=== PATIENT | male | born 1955 | race Caucasian/White ===

== ENCOUNTER 2025-05-20 08:41 | Inpatient (IN) | payer MEDICARE, BC ==
[2025-05-20 09:47] LABS: PLATELET COUNT,PLT 304 K/uL (130-375); RED BLOOD CELL COUNT 4.34 M/uL (4.14-5.76); WHITE BLOOD CELL COUNT,WBC 16.0 K/uL (3.2-11.0)
[2025-05-20 09:56] LABS: APPEARANCE,URINE CLEAR (CLEAR); GLUCOSE,URINE NEGATIVE (NEGATIVE); OCCULT BLOOD,URINE SMALL (NEGATIVE)
[2025-05-20 10:06] LABS: SQUAMOUS EPITHELIAL CELLS,UR RARE /HPF; UROTHELIAL CELLS,URINE NOT SEEN /HPF
[2025-05-20 10:08] LABS: A/G RATIO 0.7 (1.2-2.2); ALANINE AMINOTRANSFERASE,ALT 95 U/L (12-78); ASPARTATE AMNIOTRANSFERASE,AST 53 U/L (15-37); BILIRUBIN TOTAL 0.5 mg/dL (0.2-1.0); BLOOD UREA NITROGEN,BUN 17 mg/dL (7-18); CARBON DIOXIDE,CO2 30 mmol/L (21-32); CHLORIDE,CL 99 mmol/L (100-108); CREATININE 0.9 mg/dL (0.8-1.3); ESTIMATED GFR 93 mL/min (>60); GLUCOSE RANDOM 113 mg/dL (74-106); POTASSIUM,K 3.4 mmol/L (3.6-5.2); PROTEIN TOTAL,TP 7.8 g/dL (6.4-8.2); SODIUM,NA 135 mmol/L (140-148)
[2025-05-20 10:09] LABS: BAND ABSOLUTE MAN 0.64 K/uL; BAND PERCENT MAN 4 % (5-11); EOSINOPHILS ABSOLUTE MAN 0.32 K/uL (0.00-0.40); EOSINOPHILS PERCENT MAN 2 % (2-4); LYMPHOCYTES ABSOLUTE MAN 0.80 K/uL (0.8-3.3); LYMPHOCYTES PERCENT MAN 5 % (24-44); MONOCYTES ABSOLUTE MAN 0.64 K/uL (0.20-0.90); MONOCYTES PERCENT MAN 4 % (2-6); NEUTROPHILS ABSOLUTE MAN 13.60 K/uL (1.0-7.6); SEG NEUTROPHILS PERCENT MAN 85 % (36-66)
[2025-05-20 10:25] LABS: CORONAVIRUS COVID-19 NAA NEGATIVE (NEGATIVE); INFLUENZA A NAA NEGATIVE (NEGATIVE); INFLUENZA B NAA NEGATIVE (NEGATIVE); RESPIRATORY SYNCYTIAL VIR NAA NEGATIVE (NEGATIVE)
[2025-05-20] MEDS: Iopamidol 612 MG/ML 100 ML Bottle IV SCH (11:51)
[2025-05-20] MEDS ORDERED: fentaNYL 250 MCG/5 ML SDV ONE ×2 (14:06→14:53)
[2025-05-20] MEDS ORDERED: Dexamethasone 4 MG/ML SDV ONE (14:07)
[2025-05-20] MEDS ORDERED: Glycopyrrolate 0.2 MG/ML 5 ML MDV ONE (14:07)
[2025-05-20] MEDS ORDERED: Propofol 200 MG/20 ML SDV ONE (14:07)
[2025-05-20] MEDS ORDERED: Ondansetron 4 MG/2 ML SDV ONE (14:07)
[2025-05-20] MEDS ORDERED: Succinylcholine 200 MG/10 ML MDV ONE (14:07)
[2025-05-20] MEDS: Piperacillin/Tazobactam 3.375 GM AdvVial ONE (14:49)
[2025-05-20] MEDS ORDERED: Lactated Ringers 1,000 ML ONE (15:18)
[2025-05-20] MEDS: fentaNYL 50 MCG/ML SDV IVPUSH ONE (16:25)
[2025-05-20] MEDS: Ondansetron 4 MG/2 ML SDV IVPUSH PRN (17:26)
[2025-05-20] MEDS: Ondansetron 4 MG/2 ML SDV IVPUSH ONE (20:34)
[2025-05-21 05:59] LABS: PLATELET COUNT,PLT 327 K/uL (130-375); RED BLOOD CELL COUNT 4.16 M/uL (4.14-5.76); WHITE BLOOD CELL COUNT,WBC 12.9 K/uL (3.2-11.0)
[2025-05-21 06:13] LABS: BAND ABSOLUTE MAN 1.55 K/uL; BAND PERCENT MAN 12 % (5-11); LYMPHOCYTES ABSOLUTE MAN 0.65 K/uL (0.8-3.3); LYMPHOCYTES PERCENT MAN 5 % (24-44); MONOCYTES ABSOLUTE MAN 0.65 K/uL (0.20-0.90); MONOCYTES PERCENT MAN 5 % (2-6); NEUTROPHILS ABSOLUTE MAN 10.06 K/uL (1.0-7.6); SEG NEUTROPHILS PERCENT MAN 78 % (36-66)
[2025-05-21 06:14] LABS: A/G RATIO 0.6 (1.2-2.2); ALANINE AMINOTRANSFERASE,ALT 54 U/L (12-78); ASPARTATE AMNIOTRANSFERASE,AST 24 U/L (15-37); BILIRUBIN TOTAL 0.6 mg/dL (0.2-1.0); BLOOD UREA NITROGEN,BUN 11 mg/dL (7-18); CARBON DIOXIDE,CO2 27 mmol/L (21-32); CHLORIDE,CL 105 mmol/L (100-108); CREATININE 0.9 mg/dL (0.8-1.3); EST CRCL DRUG DOSING (CG) 88.78 mL/min; ESTIMATED GFR 93 mL/min (>60); GLUCOSE RANDOM 141 mg/dL (74-106); POTASSIUM,K 3.9 mmol/L (3.6-5.2); PROTEIN TOTAL,TP 6.9 g/dL (6.4-8.2); SODIUM,NA 139 mmol/L (140-148)
[2025-05-21] MEDS: Piperacillin/Tazobactam/Dext 4.5 GM in Premix Bag 1 BAG IV SCH (14:12)
[2025-05-22 05:50] LABS: PLATELET COUNT,PLT 325 K/uL (130-375); RED BLOOD CELL COUNT 3.79 M/uL (4.14-5.76); WHITE BLOOD CELL COUNT,WBC 12.0 K/uL (3.2-11.0)
[2025-05-22 06:16] LABS: A/G RATIO 0.6 (1.2-2.2); ALANINE AMINOTRANSFERASE,ALT 39 U/L (12-78); ASPARTATE AMNIOTRANSFERASE,AST 16 U/L (15-37); BILIRUBIN TOTAL 0.5 mg/dL (0.2-1.0); BLOOD UREA NITROGEN,BUN 14 mg/dL (7-18); CARBON DIOXIDE,CO2 25 mmol/L (21-32); CHLORIDE,CL 107 mmol/L (100-108); CREATININE 0.8 mg/dL (0.8-1.3); EST CRCL DRUG DOSING (CG) 99.88 mL/min; ESTIMATED GFR 96 mL/min (>60); GLUCOSE RANDOM 110 mg/dL (74-106); POTASSIUM,K 3.5 mmol/L (3.6-5.2); PROTEIN TOTAL,TP 6.0 g/dL (6.4-8.2); SODIUM,NA 140 mmol/L (140-148)
[2025-05-22 06:17] LABS: ATYPICAL LYMPHOCYTES RARE; BAND ABSOLUTE MAN 0.24 K/uL; BAND PERCENT MAN 2 % (5-11); EOSINOPHILS ABSOLUTE MAN 0.48 K/uL (0.00-0.40); EOSINOPHILS PERCENT MAN 4 % (2-4); LYMPHOCYTES ABSOLUTE MAN 1.20 K/uL (0.8-3.3); LYMPHOCYTES PERCENT MAN 10 % (24-44); MONOCYTES ABSOLUTE MAN 0.72 K/uL (0.20-0.90); MONOCYTES PERCENT MAN 6 % (2-6); NEUTROPHILS ABSOLUTE MAN 9.36 K/uL (1.0-7.6); SEG NEUTROPHILS PERCENT MAN 78 % (36-66)
[2025-05-22] MEDS: Heparin Sodium 5,000 Units/ML Vial SUBCUT SCH (14:55)
[2025-05-23 05:41] LABS: PLATELET COUNT,PLT 348 K/uL (130-375); RED BLOOD CELL COUNT 3.71 M/uL (4.14-5.76); WHITE BLOOD CELL COUNT,WBC 10.8 K/uL (3.2-11.0)
[2025-05-23 06:02] LABS: BLOOD UREA NITROGEN,BUN 12.0 mg/dL (7-18); CARBON DIOXIDE,CO2 27.0 mmol/L (21-32); CHLORIDE,CL 105.0 mmol/L (100-108); CREATININE 0.9 mg/dL (0.8-1.3); EST CRCL DRUG DOSING (CG) 88.78 mL/min; ESTIMATED GFR 93.0 mL/min (>60); GLUCOSE RANDOM 116.0 mg/dL (74-106); POTASSIUM,K 3.7 mmol/L (3.6-5.2); SODIUM,NA 139.0 mmol/L (140-148)
[2025-05-23 06:16] LABS: ATYPICAL LYMPHOCYTES RARE; EOSINOPHILS ABSOLUTE MAN 0.32 K/uL (0.00-0.40); EOSINOPHILS PERCENT MAN 3 % (2-4); LYMPHOCYTES ABSOLUTE MAN 1.51 K/uL (0.8-3.3); LYMPHOCYTES PERCENT MAN 14 % (24-44); MONOCYTES ABSOLUTE MAN 0.76 K/uL (0.20-0.90); MONOCYTES PERCENT MAN 7 % (2-6); NEUTROPHILS ABSOLUTE MAN 8.21 K/uL (1.0-7.6); SEG NEUTROPHILS PERCENT MAN 76 % (36-66)
[2025-05-24 10:35] LABS: ANAPLASMA PHAGOCYTOPHILUM PCR Not Detected; BABESIA MICROTI BY PCR Not Detected; EHRLICHIA CHAFFEENSIS BY PCR Not Detected; EHRLICHIA EWINGII/CANIS BY PCR Not Detected; EHRLICHIA MURIS-LIKE BY PCR Not Detected
[2025-05-24 11:10] VITALS: BP 131/69; PULSE 79
== END 2025-05-24 12:43 | disposition home or self-care (01) | DRG 399 ==
LOC: JP.ED 08:41 → JP.SDS 13:21 → JP.MS 16:58
PROVIDERS: ADMIT Student in an Organized Health Care Education/Training Program; ATTEND Internal Medicine
PROC: 0W9G0ZZ Drainage of Peritoneal Cavity, Open Approach (ICD-10-PCS; principal; 2025-05-20 14:00)
PROC: 3E03329 Introduction of Other Anti-infective into Peripheral Vein, Percutaneous Approach (ICD-10-PCS; principal; 2025-05-20 14:00)
PROC: 0DTJ0ZZ Resection of Appendix, Open Approach (ICD-10-PCS; principal; 2025-05-20 14:00)
DX: K35.32 Acute appendicitis with perforation, localized peritonitis, and gangrene, without abscess (principal); K35.33 Acute appendicitis with perforation, localized peritonitis, and gangrene, with abscess; E78.00 Pure hypercholesterolemia, unspecified; E86.0 Dehydration; Z98.890 Other specified postprocedural states; Z88.0 Allergy status to penicillin; Z79.899 Other long term (current) drug therapy
CPT/HCPCS: 00840 ×2; 36415; 71046 ×2; 74177; 80053; 81001; 83605; 83690; 85025; 86140; 86618 ×2; 87040 ×2; 87077 ×2; 87468; 87469; 87484; 87637; 87798 ×3; 96361; 96365; 99285; J0131; J0330; J0665; J0696; J1100; J1596; J2405; J2543 ×2; J2704; J2710; J3010 ×3; J7030 ×2; J7120; Q9967; 51701; 51798; 80048; 87070; 87186; 87205; 99223; 99231; 99232; 99238; A9270-GY; C1758; J1171; J1644; J3490